=== PATIENT | male | born 1965 | race Caucasian/White ===

== ENCOUNTER 2017-09-17 17:56 | Emergency (ER) | payer BC ==
[2017-09-17] MEDS ORDERED: Acetaminophen 500 MG TAB ONE (18:19)
== END 2017-09-17 19:02 | disposition home or self-care (01) ==
LOC: NAV ERS 17:56
DX: J10.1 Influenza due to other identified influenza virus with other respiratory manifestations (principal); F17.210 Nicotine dependence, cigarettes, uncomplicated; Z79.899 Other long term (current) drug therapy
CPT/HCPCS: 99283